=== PATIENT | male | born 1975 | race African-American/Black ===

== ENCOUNTER 2017-10-08 05:28 | Day surgery (SDC) | payer MEDICARE, OTHER ==
[2017-10-07 13:34] LABS: BASOPHILS 0.4 % (0-2); EOSINOPHILS 1.1 % (0-7); HEMOGLOBIN 10.1 g/dL (13.5-17.5); IMMATURE GRANULOCYTES 0.1 % (0-5); LYMPHOCYTES 20.2 % (15-50); MCH 28.5 pg (26.0-34.0); MCHC 33.7 g/dL (31.0-37.0); MCV 84.5 fL (80.0-100.0); MEAN PLATELET VOLUME 9.9 fL (7.4-10.4); MONOCYTES 6.6 % (2-11); NEUTROPHILS 71.6 % (40-80); PLATELET COUNT 168 10x3/uL (130-400); RBC 3.55 10x6/uL (4.20-6.10); RDW 14.3 % (11.5-14.5); WBC 7.2 10x3/uL (4.8-10.8)
[2017-10-07 13:42] LABS: ANION GAP 15.5 mmol/L (8-16); CALCIUM 8.4 mg/dL (8.5-10.1); CARBON DIOXIDE 22.7 mmol/L (21.0-32.0); CREATININE - SERUM 7.4 mg/dL (0.6-1.3); POTASSIUM - SERUM 4.2 mmol/L (3.5-5.1)
[2017-10-07 13:44] LABS: APTT 24.5 SECONDS (22.8-39.4); INR 0.9 (0.85-1.17); PROTIME 11.7 SECONDS (11.6-15.0)
[~2017-10-08] VITALS: Ht 188 cm; Wt 128.8 kg
--- NOTE | ~2017-10-08 | OP ---
PATIENT NAME: MONISHA ROBLERO MEDICAL RECORD: [id number] :73 LOCATION:D.[facility] ADMISSION DATE: SURGEON: LOGAN ARTEAGA MD DATE OF OPERATION: 10/08/2017 PREOPERATIVE DIAGNOSIS: End-stage renal disease. POSTOPERATIVE DIAGNOSIS: End-stage renal disease. OPERATION PERFORMED: 1. Creation of a left wrist radiocephalic Sukhwinder type AV fistula. 2. Laparoscopic implantation of peritoneal dialysis catheter with subcutaneous extension. REFERRING PHYSICIAN: Greg Tyler MD SURGEON: Logan Arteaga MD ANESTHESIA: General endotracheal per MANAGER OF CREATIVE SERVICES. PREOPERATIVE NOTE: Mr. Roblero is a very nice 42-year-old -Turkish male from [place]. He has end-stage renal disease and is dialyzing with a right internal jugular tunneled dialysis catheter. He is brought to the hospital today to go to surgery to create a left wrist radiocephalic AV fistula and to implant laparoscopically a PD catheter. The patient has a prominent abdomen and I plan a subcutaneous extension with a right subcostal exit site for the PD catheter. Under general endotracheal anesthesia, the patient was prepped and draped in sterile manner. A longitudinal incision was made at the left wrist after I had examined him with ultrasound and had applied topical nitroglycerin and used a Stamford drain for a proximal venous tourniquet. The patient had a very satisfactory cephalic vein in the forearm and at the wrist and a very adequate radial artery without visible atherosclerosis. These vessels were exposed and treated with topical papaverine. The vein was divided at a bifurcation and the 2 tributaries ligated with 3-0 Vicryl. The vein was spatulated there and prepared for anastomosis. It was flushed with heparinized saline and gently explored with a 2.5, then a 3 and then a 3.5 coronary artery dilator, which I demonstrated to pass without resistance up the forearm. Valves in the vein segments were competent and it was not necessary to use a vascular clamp. The artery was exposed and controlled with Silastic loops, it was free of atherosclerosis or inflammatory changes. It was opened for a distance of about 7 mm. It was flushed proximally and distally with heparinized saline and treated again with topical papaverine. An end-to-side end of vein to side of artery anastomosis was then performed with running 7-0 Prolene and when completed, the anastomosis was watertight and with the release of the occluding loops, excellent flow was immediately established within the new fistula with a good palpable pulsation and thrill and excellent pulsatile continuous Doppler flow. Hemostasis was completed with some brief compression with dry gauze. The wound was infiltrated with 0.25% Marcaine without epinephrine and then closed with interrupted inverted 3-0 Vicryl and then running intracuticular 4-0 Stratafix. The skin further were sealed with Dermabond glue and dressed with Maxorb Ag, Tegaderm, and Cavilon skin prep. The patient was then reprepped and redraped in preparation for his laparoscopic procedure. Under the same general endotracheal anesthetic, a small incision was made in the left upper quadrant OPERATIVE REPORT [id number] MONISHA ROBLERO and a 5 mm 0-degree laparoscope was introduced through a XL Optiview port. Pneumoperitoneum was established with carbon dioxide and I confirmed that there was no injury to bowel or other intra-abdominal viscera upon entering the abdomen with the trocar. I saw no other abnormalities. The patient was placed into Trendelenburg position and I found that there was no omentum within the pelvis and there were hernias seen. I used the Merit catheter system with stencils and identified a site in the right paramedian area slightly below the level of the umbilicus, made a longitudinal incision there and carried down to the anterior rectus sheath. It was extended cephalad for about 4 cm. I used an introducer needle and guidewire then to larson the anterior abdominal wall and create initially the tunnel, which was quite oblique and passed superficially to the peritoneum for about an inch and a half or as far as I could manage it using this needle and guidewire. The guidewire passed into the pelvis and the needle was removed and a 16-Romanian introducer was then passed over the guidewire. The Merit catheters were each rinsed in saline and the air evacuated from each Dacron cuff. The coiled portion of the PD catheter was placed over a scientific artist and inserted through the peel-away sheath into the pelvis as the sheath was removed. I used a hemostat to push the Dacron felt cuff into position just deep to the anterior rectus sheath and this was to be held in place with a pursestring suture of 2-0 Vicryl. I then made a vertical incision in the upper abdomen to the right of midline and created a subcutaneous tunnel between them. I measured the required length of catheter to extend from top to bottom taking into account the curvature of the obese abdomen. The catheters were shortened and then attached with a titanium connector which was secured also with 2-0 Prolene ties. Now 1 piece catheter was pulled through the subcutaneous tunnel up to the superior incision where a tunneling trocar was attached and the catheter was passed subcutaneously up and down to the general area of the planned exit site and the catheter pierced the skin easily and the catheter pulled through. The Dacron felt cuff was left distance about an inch above the skin exit site in the tunnel. The catheter was then flushed with 200 mL of heparinized saline, which were noted to be easily suctioned back. The catheter was then hep-locked and clamped and capped. The exit site was dressed with a BioGuard disc. The catheter was coiled and covered with sterile dressing. The patient's pneumoperitoneum was allowed to escape and the port removed. The wounds were irrigated with saline and infiltrated with 0.25% Marcaine without epinephrine. The wounds were closed with interrupted inverted 3-0 Vicryl and skin closure completed with a running 4-0 Stratafix. The 5-mm incision in the left upper quadrant skin was closed with Dermabond and Maxorb. The patient then was awakened and in stable condition taken to the recovery room. Blood loss during the procedure was very trivial, probably 5 cc, certainly none was replaced. All sponges, instruments and needles were accounted for. No drain was used and no surgical specimen was submitted for histopathology. I had this gentleman back to see me in my office next week. He is to continue his same preop home medications, follow his usual diet and activities, and continue his routine dialysis schedule. I will ask the nurses to be sure that he is scheduled with the peritoneal dialysis nurse in [place] next week if not this week. TRANSINT:[id number] Voice Confirmation ID: [id number] DOCUMENT ID: [id number] OPERATIVE REPORT [id number] MONISHA ROBLERO JAMES MD at 1054 CC: [id number] DICTATION DATE: 10/08/17 1213 EYEGLASS LENS GRINDER: 10/08/17 1255 [facility] 10/08/17 [facility] [address] [place] [address]
[2017-10-08] MEDS ORDERED: METOPROLOL TAR100 M1 PO (06:49)
[2017-10-08] MEDS ORDERED: NIFEDIPINE ER60 MG PO (06:49)
[2017-10-08] MEDS ORDERED: CARDURA2 MG PO (06:50)
[2017-10-08] MEDS ORDERED: NEPHRO-VITE RX1 TAB PO (06:50)
[2017-10-08] MEDS ORDERED: BASAGLAR K100 UNIT/1 SC (06:51)
[2017-10-08 07:02] VITALS: BP 121/74; Ht 188 cm; Wt 128.8 kg
[2017-10-08] MEDS ORDERED: NOVOLOG100 U/M1 (07:11)
[2017-10-08] MEDS ORDERED: HYDRALAZINE HC100 MG PO (07:12)
[2017-10-08] MEDS ORDERED: FUROSEMIDE40 MG (07:13)
[2017-10-08] MEDS ORDERED: GABAPENTIN100 MG PO (07:13)
[2017-10-08] MEDS ORDERED: RED YEAST RICE600 MG PO (07:13)
[2017-10-08] MEDS ORDERED: ZEGERID OTC 201 EACH PO (07:14)
== END 2017-10-08 16:15 | disposition home or self-care (01) ==
LOC: D.OPS 05:28
PROVIDERS: Surgery
DX: N18.6 End stage renal disease (principal); Z99.2 Dependence on renal dialysis; Z01.812 Encounter for preprocedural laboratory examination

== ENCOUNTER → 2017-12-17 09:43 | Outpatient (CLI) | payer MEDICARE, OTHER ==
[2017-10-08 07:02] VITALS: BMI 36.5
[~2017-12-17 09:43] MED LIST: BASAGLAR K100 UNIT/1 SC; CARDURA2 MG PO; FUROSEMIDE40 MG; GABAPENTIN100 MG PO; HYDRALAZINE HC100 MG PO; METOPROLOL TAR100 M1 PO; NEPHRO-VITE RX1 TAB PO; NIFEDIPINE ER60 MG PO; NOVOLOG100 U/M1; RED YEAST RICE600 MG PO; ZEGERID OTC 201 EACH PO
[2017-12-17 10:05] LABS: BASOPHILS 0.5 % (0-2); EOSINOPHILS 2.1 % (0-7); HEMATOCRIT 30.9 % (42.0-54.0); IMMATURE GRANULOCYTES 0.1 % (0-5); LYMPHOCYTES 20.6 % (15-50); MCHC 32.4 g/dL (31.0-37.0); MCV 89.6 fL (80.0-100.0); MEAN PLATELET VOLUME 9.7 fL (7.4-10.4); MONOCYTES 6.2 % (2-11); NEUTROPHILS 70.5 % (40-80); PLATELET COUNT 213 10x3/uL (130-400); RBC 3.45 10x6/uL (4.20-6.10); RDW 14.6 % (11.5-14.5); WBC 7.5 10x3/uL (4.8-10.8)
[2017-12-17 10:20] LABS: ANION GAP 15.2 mmol/L (8-16); CALCIUM 8.9 mg/dL (8.5-10.1); CARBON DIOXIDE 26.8 mmol/L (21.0-32.0); CREATININE - SERUM 7.6 mg/dL (0.6-1.3)
[2017-12-17 10:21] LABS: INR 1.04 (0.85-1.17); PROTIME 13.2 SECONDS (11.6-15.0)
== END | disposition home or self-care (01) ==
LOC: EDSTATUS 09:25 → D.OPS 09:25
PROVIDERS: Internal Medicine Nephrology
DX: N18.6 End stage renal disease (principal); Z99.2 Dependence on renal dialysis; Z01.810 Encounter for preprocedural cardiovascular examination; Z01.811 Encounter for preprocedural respiratory examination; Z01.812 Encounter for preprocedural laboratory examination

== ENCOUNTER 2018-01-07 07:07 | Day surgery (SDC) | payer MEDICARE, OTHER ==
[~2018-01-07] VITALS: Ht 188 cm; Wt 128.8 kg
--- NOTE | ~2018-01-07 | OP ---
PATIENT NAME: MONISHA ROBLERO MEDICAL RECORD: [id number] :73 LOCATION:D.[facility] ADMISSION DATE: SURGEON: LOGAN ARTEAGA MD DATE OF OPERATION: 01/07/2018 REFERRING PHYSICIAN: Bety Tyler MD PREOPERATIVE DIAGNOSIS: ESRD, dependence on hemodialysis, with personal decision to discontinue peritoneal dialysis. POSTOPERATIVE DIAGNOSIS: ESRD, dependence on hemodialysis, with personal decision to discontinue peritoneal dialysis. OPERATION PERFORMED: Removal of peritoneal dialysis catheter. SURGEON: Logan Arteaga MD ANESTHESIA: General with LMA per ANODE BUILDER. PREOPERATIVE NOTE: Mr. Roblero is a 43-year-old -[place] male on chronic hemodialysis with end-stage renal disease. I did a laparoscopic peritoneal catheter implantation, implanting a catheter with a subcutaneous extension back about 3 months ago. It has functioned well, but the patient has decided that he does not want to do home PD. He is brought to the hospital at this time to remove this catheter. Note, he has a left radiocephalic AV fistula, which has not yet been used for dialysis. It has been somewhat slow to mature. He is scheduled for fistulogram on of this week. He is presently dialyzing with a right-sided tunneled dialysis catheter. DESCRIPTION OF PROCEDURE: Under general anesthesia in supine position, the patient was prepped and draped in sterile manner. I made an incision over the superficial cuff and freed it from the surrounding tissues and divided the catheter and disposed the external portion. I made another incision, reopening the initial incision where the deeper Dacron felt cuff was embedded within the rectus sheath. I freed it from the surrounding tissues and removed that segment and then, with traction, I was able to remove the long subcutaneous catheter segment with the titanium connector within it. Content that all of the catheter had been successfully removed, the wounds were infiltrated with 0.25% Marcaine with epinephrine and closed with interrupted inverted 3-0 Vicryl and running intracuticular 4-0 Monocryl and Dermabond glue. They were dressed with Maxorb Ag, Tegaderm, and Cavilon skin prep. The patient was awakened and taken to the recovery room in stable condition. Blood loss was trivial and unreplaced. No drains were used. Sponges, instruments, and needles were accounted for. No surgical specimen submitted for histopathology. The peritoneal dialysis catheter fragments were discarded. He will go home and resume activities as tolerated. He is given a prescription for tramadol 50 mg, he can take one or two q. 4 hours p.r.n. pain along with or intermittently with Tylenol and even ibuprofen. He is to use ice off and on to the operative area as well for discomfort. He will resume his renal diet and all the same meds. I will see him back in the office in about 2 weeks. TRANSINT:[id number] Voice Confirmation ID: [id number] DOCUMENT ID: [id number] OPERATIVE REPORT [id number] MONISHA ROBLERO JAMES MD at 1132 CC: BETY TYLER MD [id number] DICTATION DATE: 01/07/18 1316 SENIOR MARKETING ENGINEER: 01/07/18 1338 [facility] 01/07/18 [facility] [address] [place] [address]
[2018-01-07 07:30] LABS: HEMATOCRIT 29.4 % (42.0-54.0); HEMOGLOBIN 9.7 g/dL (13.5-17.5); IMMATURE GRANULOCYTES 0.2 % (0-5); LYMPHOCYTES 29.8 % (15-50); MCH 29.5 pg (26.0-34.0); MCV 89.4 fL (80.0-100.0); MEAN PLATELET VOLUME 9.1 fL (7.4-10.4); MONOCYTES 7.4 % (2-11); NEUTROPHILS 58.6 % (40-80); PLATELET COUNT 201 10x3/uL (130-400); RBC 3.29 10x6/uL (4.20-6.10); RDW 13.7 % (11.5-14.5); WBC 6.1 10x3/uL (4.8-10.8)
[2018-01-07 07:38] LABS: ANION GAP 15.5 mmol/L (8-16); CALCIUM 9.5 mg/dL (8.5-10.1); CARBON DIOXIDE 26.6 mmol/L (21.0-32.0); CREATININE - SERUM 8.7 mg/dL (0.6-1.3); POTASSIUM - SERUM 4.1 mmol/L (3.5-5.1)
[2018-01-07 07:58] LABS: APTT 28.1 SECONDS (22.8-39.4); INR 0.97 (0.85-1.17); PROTIME 12.5 SECONDS (11.6-15.0)
[2018-01-07] MEDS ORDERED: TOUJEO SOL300 UNIT/1 (08:10)
[2018-01-07] MEDS ORDERED: RENVELA800 MG PO (08:13)
[2018-01-07] MEDS ORDERED: PROTONIX20 MG PO (08:13)
[2018-01-07 08:25] VITALS: BP 137/73; Ht 188 cm; Wt 128.8 kg
== END 2018-01-07 14:30 | disposition home or self-care (01) ==
LOC: D.OPS 07:07
PROVIDERS: Internal Medicine Nephrology
DX: N18.6 End stage renal disease (principal); Z99.2 Dependence on renal dialysis; Z01.812 Encounter for preprocedural laboratory examination

== ENCOUNTER → 2018-01-23 12:44 | Outpatient (CLI) | payer MEDICARE, OTHER ==
[2018-01-07 08:25] VITALS: BMI 36.5
[~2018-01-23 12:44] MED LIST changes: +PROTONIX20 MG PO; +RENVELA800 MG PO; +TOUJEO SOL300 UNIT/1
== END | disposition home or self-care (01) ==
LOC: D.RAD 12:44
DX: N18.6 End stage renal disease (principal); Z99.2 Dependence on renal dialysis

== ENCOUNTER 2018-07-19 00:19 | Emergency (ER) | payer OTHER, MEDICARE ==
[~2018-07-19] VITALS: Ht 188 cm; Wt 128.6 kg
[2018-07-19 00:24] VITALS: Ht 188 cm; Wt 128.6 kg
[2018-07-19] MEDS ORDERED: CYCLOBENZAPRINE10 MG PO (00:26)
[2018-07-19 01:01] LABS: BASOPHILS 0.3 % (0-2); EOSINOPHILS 0.9 % (0-7); HEMOGLOBIN 12.4 g/dL (13.5-17.5); IMMATURE GRANULOCYTES 0.3 % (0-5); LYMPHOCYTES 22.3 % (15-50); MCH 29.4 pg (26.0-34.0); MCHC 33.5 g/dL (31.0-37.0); MCV 87.7 fL (80.0-100.0); MEAN PLATELET VOLUME 9.8 fL (7.4-10.4); MONOCYTES 6.4 % (2-11); NEUTROPHILS 69.8 % (40-80); PLATELET COUNT 212 10x3/uL (130-400); RBC 4.22 10x6/uL (4.20-6.10); RDW 14.5 % (11.5-14.5); WBC 11.8 10x3/uL (4.8-10.8)
[2018-07-19 01:13] LABS: ALBUMIN 3.9 g/dL (3.4-5.0); ANION GAP 16.1 mmol/L (8-16); BILIRUBIN - TOTAL 0.35 mg/dL (0.2-1.3); C-REACTIVE PROTEIN 0.7 mg/dL (0.0-0.9); CALCIUM 9.6 mg/dL (8.5-10.1); CARBON DIOXIDE 27.5 mmol/L (21.0-32.0); CREATININE - SERUM 9.7 mg/dL (0.6-1.3); MAGNESIUM - SERUM 1.6 mg/dL (1.8-2.4); PHOSPHOROUS 6.3 mg/dL (2.5-4.9); POTASSIUM - SERUM 3.6 mmol/L (3.5-5.1); PROTEIN - SERUM 8.6 g/dL (6.4-8.2)
[2018-07-19 02:52] VITALS: BP 130/74
== END 2018-07-19 02:54 | disposition home or self-care (01) ==
LOC: D.ER 00:19
PROVIDERS: Emergency Medicine
DX: M79.632 Pain in left forearm (principal); M25.532 Pain in left wrist; I77.0 Arteriovenous fistula, acquired; E11.9 Type 2 diabetes mellitus without complications; I12.0 Hypertensive chronic kidney disease with stage 5 chronic kidney disease or end stage renal disease; N18.6 End stage renal disease; Z99.2 Dependence on renal dialysis

== ENCOUNTER 2018-11-24 04:55 | Emergency (ER) | payer OTHER, MEDICARE ==
[~2018-11-24] VITALS: Ht 188 cm; Wt 128.2 kg
[~2018-11-24 04:55] MED LIST changes: +CYCLOBENZAPRINE10 MG PO
[2018-11-24 04:58] VITALS: Ht 188 cm; Wt 128.2 kg
[2018-11-24 06:41] VITALS: BP 180/94
== END 2018-11-24 06:41 | disposition home or self-care (01) ==
LOC: D.ER 04:55
DX: M54.5 Low back pain (principal); E11.22 Type 2 diabetes mellitus with diabetic chronic kidney disease; N18.6 End stage renal disease; Z99.2 Dependence on renal dialysis

== ENCOUNTER 2019-01-02 19:09 | Emergency (ER) | payer OTHER, MEDICARE ==
[~2019-01-02] VITALS: Ht 188 cm; Wt 127.9 kg
[2019-01-02 19:28] VITALS: Ht 188 cm; Wt 127.9 kg
[2019-01-02] MEDS ORDERED: TORADOL10 MG PO (20:15)
[2019-01-02] MEDS ORDERED: ULTRAM50 MG PO (20:16)
[2019-01-02 20:49] VITALS: BP 126/85
== END 2019-01-02 20:51 | disposition home or self-care (01) ==
LOC: D.ER 19:09
DX: M54.5 Low back pain (principal); E11.9 Type 2 diabetes mellitus without complications; I11.0 Hypertensive heart disease with heart failure; I50.9 Heart failure, unspecified

== ENCOUNTER 2019-02-16 07:47 | Emergency (ER) | payer OTHER, MEDICARE ==
[~2019-02-16] VITALS: Ht 188 cm; Wt 129.5 kg
[~2019-02-16 07:47] MED LIST changes: +TORADOL10 MG PO; +ULTRAM50 MG PO
[2019-02-16 07:52] VITALS: Ht 188 cm; Wt 129.5 kg
[2019-02-16] MEDS ORDERED: CYCLOBENZAPRINE10 MG PO (08:37)
[2019-02-16] MEDS ORDERED: MEDROL DOSE PACK4 MG PO (08:37)
[2019-02-16] MEDS ORDERED: ACETAMINOPHEN500 M1 PO (08:37)
[2019-02-16] MEDS ORDERED: LIDODERM 5 %1 PATCH TRANSDERM (08:37)
[2019-02-16 08:54] VITALS: BP 194/89
== END 2019-02-16 08:54 | disposition home or self-care (01) ==
LOC: D.ER 07:47
DX: M62.830 Muscle spasm of back (principal); I13.0 Hypertensive heart and chronic kidney disease with heart failure and stage 1 through stage 4 chronic kidney disease, or unspecified chronic kidney disease; E11.22 Type 2 diabetes mellitus with diabetic chronic kidney disease; N18.9 Chronic kidney disease, unspecified; I50.9 Heart failure, unspecified; Z79.4 Long term (current) use of insulin; Z99.2 Dependence on renal dialysis; K21.9 Gastro-esophageal reflux disease without esophagitis

== ENCOUNTER 2019-10-23 21:17 | Emergency (ER) | payer OTHER, MEDICARE ==
[2019-04-06 07:37] VITALS: BMI 37.3
[~2019-10-23 21:17] MED LIST changes: +ACETAMINOPHEN500 M1 PO; +LIDODERM 5 %1 PATCH TRANSDERM; +MEDROL DOSE PACK4 MG PO
== END 2019-10-23 22:48 | disposition left against medical advice (07) ==
LOC: D.ER 21:17
DX: R50.9 Fever, unspecified (principal); R11.10 Vomiting, unspecified